=== PATIENT | male | born 1960 | race Caucasian/White ===

== ENCOUNTER 2021-11-23 12:34 | Outpatient (CLI) | payer BC, SELFPAY ==
[2021-11-23 13:39] VITALS: BP 184/100; PULSE 70; RESP 18
--- NOTE | 2021-11-23 14:59 | PM.ST ---
Stress Test Note Date Date Seen: 11/23/21 Date of test: 11/23/21 Providers Referring provider: Kai Medina Primary care provider: Kai Medina Stress test physician: Fili Gamboa Stress Test Note Stress test ordered: Stress Echo Indication for test: chest pain Results discussion: Pretest EKG shows normal sinus rhythm with a ventricular rate of 48 there is no acute ST wave changes. Blood pressure 170/92 is slightly elevated review of the cardiac stress test medical history is done after discussion the risks benefits side effects he would like to proceed Julian protocol is employed over a time course of 12 minutes 2nd, condition was felt to be excellent maximum blood pressure 216/102. He had no chest pain and no shortness of breath. Test is terminated because of fulfillment of protocol. There are no ST wave changes suggestive of ischemia he did have occasional PVCs at times. But recovered normally in the recovery. Impression: Negative electrographic portion of stress test, inducement of PVCs, condition felt to be excellent Follow up suggested: Follow-up with primary care suggested, echo portion will be reviewed by Cardiology clinical correlation with this will be needed. He left this testing facility in excellent condition.
== END 2021-11-23 13:46 | disposition home or self-care (01) ==
LOC: STRESS 12:35
PROVIDERS: PCP Family Medicine; Visit Provider Family Medicine
DX: R06.09 Other forms of dyspnea (principal)
CPT/HCPCS: 93016; 93325; 93351

== ENCOUNTER 2022-02-15 19:09 | Outpatient (CLI) | payer BC, SELFPAY ==
--- NOTE | 2022-02-23 13:15 | W.PM.SLEEP ---
Sleep Study Details Details Interpreting Provider: Jose Cross MD Date of Sleep Study: 02/15/22 Sleep Study Details: STUDY TYPE:? Home ? BMI:? 39 ORDERING PROVIDER:? Heike INDICATION:? Concerns about sleep apnea ? SLEEP SUMMARY:? 436 monitored minute RESPIRATORY SUMMARY:? AHI is 11.7 supine 13.9, right lateral 9.4 Low oxygen 80 0.8% of study oxygen less than 90%, and 0.1% of study oxygen less than 85% Snoring% 5.2 PERIODIC LIMB MOVEMENTS OF SLEEP:? Not recorded CARDIAC:? 43-88, mean 51.6 IMPRESSION:? Mild obstructive sleep apnea RECOMMENDATION: Treatment options would include AutoSet CPAP, dental appliance, weight loss and/or airway expansion surgery
== END 2022-02-15 19:10 | disposition home or self-care (01) ==
PROVIDERS: PCP Family Medicine; Visit Provider Otolaryngology
DX: G47.33 Obstructive sleep apnea (adult) (pediatric) (principal)
CPT/HCPCS: 95806

== ENCOUNTER 2022-04-12 14:37 | Outpatient (CLI) | payer BC, SELFPAY ==
--- OUTSIDE RECORDS SUMMARY | 2022-04-12 14:46 | XMS_ITS | Clinical Summary ---
:1960 Author Organization [facility] [place] [address] Care Team Providers Name Role Phone Kai Medina MD Primary Care Provider Allergies Active Allergy Reactions Severity Noted Date Comments Amoxicillin-Pot Clavulanate 10/12/2007 Severe vomiting Erythromycin 10/12/2007 Throat swelling and resp distress Azithromycin 10/12/2007 Throat swelling and respiratory dis tress Medications Medication Sig Dispensed Refills Start Date End Date Status MAXALT 10 MG TAB take 1 tablet (10 0 02/20/2008 Active mg) by oral route x 1 dose, may repeat at 2 hour intervals; do not exceed 30 mg in 24 hours sildenafil citrate As Needed 0 06/15/2018 Active (VIAGRA) 100 mg tablet famotidine (PEPCID) 10 Take 1 tablet by 0 01/22/2020 Active mg tablet mouth 2 times daily if needed. Active Problems Problem Noted Date Strain of gastroc with scar tissue 08/08/2014 Colon polyp 07/21/2010 Overview: Colonoscopy 06/2010 polyp repeat in 5 yea rs Colonoscopy 07/2017 polyp, repeat in 5 ye ars Immunizations Name Administration Dates Next Due Influenza, IIV3 (Age >=3 years) 03/14/2013 Social History Tobacco Use Types Packs/Day Years Used Date Smoking Tobacco: Never Smokeless Tobacco: Never Tobacco Cessation: Counseling Given: Yes Alcohol Use Standard Drinks/Week Comments Not Currently 0 (1 standard drink = 0.6 oz pure alcoho l) social Sex Assigned at Date Recorded Not on file Obstetrics History Last Filed Vital Signs Vital Sign Reading Time Taken Comments Blood Pressure 129/83 01/22/2020 2:59 PM CDT Pulse 56 01/22/2020 2:59 PM CDT Temperature 36.6 ??C (97.8 ??F) 10/16/2014 9:45 AM CDT Respiratory Rate 20 01/22/2020 2:59 PM CDT Oxygen Saturation 96% 01/22/2020 2:59 PM CDT Inhaled Oxygen - - Concentration Weight 99.2 kg (218 lb 11.2 01/22/2020 2:59 PM Pt weigh ed with shoes oz) CDT on. Height 179.1 cm (5' 10.51) 10/16/2014 9:45 AM CDT Body Mass Index 30.93 10/16/2014 9:45 AM CDT Plan of Treatment Upcoming Encounters Date Type Specialty Care Team Description 04/15/2022 Orders Only Health Maintenance Due Date Last Done Comments Tdap 02/03/1971 Depression screening for age 12+ 1972 HIV for age 15-65 02/03/1975 BMI (ht and wt on same day) for 02/03/1978 age 18+ Hepatitis C screening for age 1002/03/1978 18-79 Tetanus booster 1980 Lipids for age 45-75 02/03/2005 Zoster (shingles) series for age 1002/03/2010 50+ (1 of 2) COVID-19 vaccine series (4 - 05/19/2021 03/24/2021, 021, Booster for Pfizer series) 07/13/2020 Influenza for age 50-64 12/30/2021 03/14/2013 Colonoscopy through age 75 08/14/2022 08/14/2017, 8, 07/21/2010, Additional history exists Results Not on filefrom Last 3 Months Insurance Payer Benefit Plan / Subscriber ID Effective Dates Phone Addre ss Type Group [employer] [id number] 2017-Present [address] [place] [address] Care Teams 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
== END 2022-04-12 14:38 | disposition home or self-care (01) ==
LOC: LKVREF 14:39
PROVIDERS: PCP Family Medicine; Visit Provider Otolaryngology
DX: R06.00 Dyspnea, unspecified (principal)
CPT/HCPCS: 84443

== ENCOUNTER 2022-04-15 08:44 | Outpatient (CLI) | payer BC, SELFPAY ==
--- NOTE | 2022-04-15 09:15 | CRLHL7_ITS ---
For Patients: As a result of the Century Cures Act, medical imaging exams and procedure reports are released immediately into your electronic medical record. You may view this report before your referring provider. If you have questions, please contact your health care provider. Indication: Dyspnea Technique: Fluoroscopic sniff test. Fluoroscopic time 12 seconds. IMPRESSION: The hemidiaphragms are somewhat sluggish but not paralyzed. Mild normal motion is noted. Dictated by Shady Dorsey MD @ 04/15/2022 9:50:55 AM (Electronically Signed)
--- NOTE | 2022-04-15 10:15 | CRLHL7_ITS ---
For Patients: As a result of the Cures Act, medical imaging exams and procedure reports are released immediately into your electronic medical record. You may view this report before your referring provider. If you have questions, please contact your health care provider. INDICATION: Dyspnea TECHNIQUE: Chest 2 views COMPARISON: None FINDINGS: Cardiac silhouette is enlarged. There is tortuosity of the descending thoracic aorta. No pleural effusion. No pulmonary edema. No infiltrate or pneumothorax. No pulmonary fibrosis. Chronic changes to the right distal clavicle. IMPRESSION: Lungs are clear without evidence of airspace disease or fibrosis. Dictated by Shady Dorsey MD @ 04/15/2022 9:50:16 AM (Electronically Signed)
== END 2022-04-15 08:45 | disposition home or self-care (01) ==
LOC: RAD 08:44
PROVIDERS: PCP Family Medicine; Visit Provider Internal Medicine Pulmonary Disease
DX: I49.3 Ventricular premature depolarization (principal)
CPT/HCPCS: 71046; 76000; 93306

== ENCOUNTER 2022-10-14 07:41 | Outpatient (CLI) | payer BC, SELFPAY | END 2022-10-14 07:42 | disposition home or self-care (01) | LOC: NFLDREF 10-17 08:36 | PROVIDERS: PCP Family Medicine; Referring Provider Family Medicine; Visit Provider Family Medicine | DX: Z00.00 Encounter for general adult medical examination without abnormal findings (principal); E78.5 Hyperlipidemia, unspecified; Z12.5 Encounter for screening for malignant neoplasm of prostate | CPT/HCPCS: 80053; 80061; 84153 ==

== ENCOUNTER 2023-04-18 23:03 | Emergency (ER) | payer BC, SELFPAY ==
[2023-04-18 23:20] VITALS: BP 140/81; PULSE 61; RESP 20; TEMP 36.5; O2SAT 96; BMI 30.8
--- NOTE | 2023-04-18 23:57 | ED.GENADULT ---
HPI - General Adult General Time Seen by Provider: 23:57 Date Seen: 04/18/23 Chief complaint: Laceration/Wound Stated complaint: Cyst -wont stop bleeding Time Seen by Provider: 04/18/23 23:35 History of Present Illness HPI narrative: 63-year-old male who presents today with concern for a bleeding wound on his face. Patient has noted a small lump on the right side of his chin that has been growing for several months. It is not painful or itchy. It did bleed once before but soft on its own. Tonight thought there might be a little fluid collection it and so poked with a needle, is been bleeding since. Has applied pressure minimal improvement. Not on any blood thinners. Related Data Home Medications Medication Instructions Recorded Confirmed sildenafil 100 mg tablet mg PO .As Needed PRN 11/03/21 10/18/22 Previous Rx's Medication Instructions Recorded amlodipine 5 mg tablet 5 mg PO QDAY #90 tabs 10/18/22 atorvastatin 20 mg tablet 20 mg PO QHS #90 tabs 10/18/22 rizatriptan 10 mg tablet 10 mg PO .As Needed PRN migraine 10/18/22 headache #24 tabs tadalafil 10 mg tablet 10 - 20 mg (1 - 2 x 10 mg) PO QDAY 10/18/22 PRN sexual activity #10 tabs tamsulosin 0.4 mg capsule 0.4 mg PO QDAY #90 caps 10/18/22 Allergies Allergy/AdvReac Type Severity Reaction Status Date / Time clavulanic acid Allergy Mild Vomiting Verified 04/18/23 23:20 penicillin V Allergy Mild Vomiting Verified 04/18/23 23:20 tazobactam Allergy Mild Vomiting Verified 04/18/23 23:20 erythromycin Allergy Mild Hives Uncoded 10/18/22 07:09 [facility] Medical History (Updated 04/19/23 @ 00:36 by Stefano Hassan MD) History of giardiasis ?Z86.19 - Personal history of other infectious and parasitic diseases (ICD-10) Surgical History (Updated 11/02/21 @ 15:56 by Fran Lazaro) History of colonoscopy ?Z98.890 - Other specified postprocedural states (ICD-10) Family History (Updated 11/03/21 @ 15:13 by Kai Medina MD) Sister Melanoma Father Metastatic malignant neoplasm of unknown primary site Social History (Updated 10/18/22 @ 10:54 by Ny Hernandez ~ CTA) Narrative: , 2 children, 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 Exercises by walking and running on a treadmill 2 days per week. Habits: No tobacco or recreational drug use. Alcohol use is about 1 drink per week. What is your current living situation?: I presently have a place to live In the past 12 months, utilities in danger of being shut off: no In the past 12 mos, have been you worried that your food would run out before you had money to buy more?: never true In the past 12 mos, the food you bought just didn't last and you didn't have money to buy more?: never true Smoking Status: Never smoker Non-prescribed substance use: denies use How often does anyone, including family, friends and others, physically hurt you: How often does anyone, including family, friends and others, insult or talk down to you: How often does anyone, including family, friends and others, threaten you with harm: How often does anyone, including family, friends and others, scream or curse at you: Little interest or pleasure in doing things: not at all Feeling down, depressed, or hopeless: not at all Exam Narrative: Exam Narrative: General: well nourished , NAD Head: Atraumatic and normocephalic ENT: External ears and external nose are normal Eyes: Conjunctiva clear, pupils are equal reactive, external ocular motions are intact Neck: Full spontaneous range of motion of the neck Lungs: No respiratory distress Musculoskeletal: No tenderness or deformity Neurologic: No gross focal neurologic deficits Skin: 3 mm purplish flesh-colored papule on the right side of the chin with active bleeding from the medial edge Psych: Mood and affect are appropriate Const: Vital Signs, click to edit/add: Vital Signs - 24 hr 04/18/23 23:20 Temperature 97.7 F Pulse Rate [Left P ulse Oximeter] 61 Respiratory Rate 20 Blood Pressure [Ri ght Upper Arm] 140/81 H Pulse Oximetry 96 Oxygen Delivery Me thod Room Air Course Course ED Course: Patient presents with a bleeding papule on the chin after trauma. On exam, there is pinpoint bleeding on the medial edge of a flesh-colored purplish papule that likely represents hemangioma although cannot exclude basal cell carcinoma. Lidocaine 1% with epinephrine 2mL was infused around into the lesion. Reevaluation(s) Time of Reevaluation #1: 00:34 Reevaluation #1: Patient recheck, still with slow oozing from the lesion. Silver nitrate cautery applied with hemostasis. Stable for discharge, should follow-up with Dermatology for biopsy. Vital Signs Vital signs: Initial Vital Signs Temperature 97.7 F 04/18/23 23:20 Temperature Source Temporal Artery Scan 04/18/23 23:20 Pulse Rate 61 04/18/23 23:20 Respiratory Rate 20 04/18/23 23:20 Blood Pressure 140/81 H 04/18/23 23:20 Blood Pressure Mean 100 04/18/23 23:20 Pulse Oximetry 96 04/18/23 23:20 Oxygen Delivery Method Room Air 04/18/23 23:20 Vital Signs Temperature 97.7 F 04/18/23 23:20 Pulse Rate 61 04/18/23 23:20 Respiratory Rate 20 04/18/23 23:20 Blood Pressure 140/81 H 04/18/23 23:20 Pulse Oximetry 96 04/18/23 23:20 Oxygen Delivery Method Room Air 04/18/23 23:20 Temperature 97.7 F 04/18/23 23:20 Pulse Rate 61 04/18/23 23:20 Respiratory Rate 20 04/18/23 23:20 Blood Pressure 140/81 H 04/18/23 23:20 Pulse Oximetry 96 04/18/23 23:20 Oxygen Delivery Method Room Air 04/18/23 23:20 Medications Administered Medications: Generic Name Dose Route Start Last Admin Trade Name Sanyaq PRN Reason Stop Dose Admin Lidocaine/Epinephrine 20 ml 04/18/23 23:35 04/18/23 23:46 Lidocaine 1%-Epi 1:100,000 20 Ml INFILTRATI 04/18/23 23:36 20 ml ONCE ONE Administration Discharge Plan Discharge Clinical Impression: Hemorrhage of skin lesion, Papule of skin Patient Disposition: Home, Self-Care Condition: Improved Instructions: Potassium Nitrate/Silver Nitrate (On the skin) Additional Instructions: Keep dressing in place for 24 hours. Schedule follow-up with dermatology Activity Level: No Restrictions Discharge Diet: Regular Prescriptions: No Action sildenafil 100 mg tablet PO .As Needed PRN Rx Instructions: TAKE 1 TAB 1 HR PRIOR TO INTERCOURSE tadalafil 10 mg tablet 10 - 20 mg PO QDAY PRN (Reason: sexual activity) Qty: 10 11RF Rx Instructions: administer approximately 30min before sexual activity; do not use more than 1 dose per 24hrs rizatriptan 10 mg tablet 10 mg PO .As Needed PRN (Reason: migraine headache) Qty: 24 2RF atorvastatin 20 mg tablet 20 mg PO QHS Qty: 90 3RF amlodipine 5 mg tablet 5 mg PO QDAY Qty: 90 3RF tamsulosin 0.4 mg capsule 0.4 mg PO QDAY Qty: 90 3RF Follow Up/Referrals: Kai Medina MD [Primary Care Provider] - Stand Alone Forms: b3 bio Info Instructions
--- NOTE | 2023-04-19 00:49 | ED.NURSE ---
gel foam dressing placed prior to discharge.
== END 2023-04-19 00:50 | disposition home or self-care (01) ==
PROVIDERS: Emergency Provider Family Medicine; PCP Family Medicine
DX: L98.9 Disorder of the skin and subcutaneous tissue, unspecified (principal); R23.8 Other skin changes
CPT/HCPCS: 95992; 99282; 99283

== ENCOUNTER 2023-11-15 07:32 | Outpatient (CLI) | payer BC, SELFPAY ==
--- OUTSIDE RECORDS SUMMARY | 2023-11-17 03:51 | XMS_ITS | Clinical Summary ---
Author Organization [facility] Address [place], [place] [address] Care Team Providers Care Still Operator Batch Or Continuous Name Role Phone Kai Medina MD Primary Care Provider [phone] Allergies Active Allergy Reactions Criticality Noted Date Comments Amoxicillin-Pot Clavulanate 10/12/19 08 Severe vomiting Erythromycin 10/12/2007 Throat swelling and resp distress Azithromycin 10/12/2007 Throat swelling and respiratory distress Medications Medication Sig Dispensed Refills Start Date End Date Status MAXALT 10 MG TAB take 1 tablet (10 mg) by oral route x 1 dose, may repeat at 2 hour intervals; do not exceed 30 mg in 24 hours 0 02/20/2008 Active sildenafil citrate (VIAGRA) 100 mg tablet As Needed 06/15/2018 Ac tive famotidine (PEPCID) 10 mg tablet Take 1 tablet by mouth 2 times daily if needed. 0 01/22/2020 Active amLODIPine (NORVASC) 5 mg tablet Take 5 mg by mouth once daily. 06/10/2022 Active atorvastatin (LIPITOR) 20 mg tablet Take 20 mg by mouth at bedtime. 09/07/2022 Active Active Problems Problem Noted Date Diagnosed Date Strain of gastroc with scar tissue 08/08/2014 Colon polyp 07/21/2010 Overview: Colonoscopy 06/2010 polyp repeat in 5 years Colonoscopy 07/2017 polyp, repeat in 5 years Colonoscopy 08/2022 normal, repeat in 7 years Immunizations Name Administration Dates Next Due Influenza, IIV3 (Age >=3 years) 03/14/2013 Social History Tobacco Use Types Packs/Day Years Used Date Smoking Tobacco: Never Smokeless Tobacco: Never Tobacco Cessation:Counseling Given: Yes Alcohol Use Standard Drinks/Week Comments Not Currently 0 (1 standard drink = 0.6 oz pur e alcohol) social Social Connections Answer Date Recorded Frequency of Communication with Friends and Fami ly Not on file 05/20/2022 Financial Resource Strain Answer Date R ecorded Difficulty of Paying Living Expenses Not on file 05/01/2021 Difficulty of Paying Living Expenses Not on file 05/01/2021 Sex and Gender Information Value Date Recorded Sex Assigned at Not on file Gender Identity Not on file Sexual Orientation Not on file Obstetrics History Last Filed Vital Signs Vital Sign Reading Time Taken Comments Blood Pressure 134/87 09/22/2022 11:05 AM CDT Pulse 51 09/22/2022 11:05 AM CDT Temperature 36.6 ??C (97.8 ??F) 10/16/2014 9 :45 AM CDT Respiratory Rate 20 09/22/2022 11:0 5 AM CDT Oxygen Saturation 100% 09/22/2022 11: 05 AM CDT Inhaled Oxygen Concentration - - Weight 99.2 kg (218 lb 11.2 oz) 01/22/2020 2:59 PM CDT Pt weighed with shoes on. Height 179.1 cm (5' 10.51) 10/16/2014 9:45 AM CDT Body Mass Index 30.93 10/16/2014 9:45 AM CDT Plan of Treatment Health Maintenance Due Date Last Done Comments Tdap 02/03/1971 Depression screening for age 12+ 1972 HIV for age 15-65 02/03/1975 BMI (ht and wt on same day) for age 18+ 02/03/1978 Hepatitis C screening for age 18-79 02/03/1978 Tetanus booster 1980 Lipids for age 45-75 02/03/2005 Zoster (shingles) series for age 50+ (1 of 2) 02/03/2010 COVID-19 vaccine series ( - 2022- season) 2022 Influenza for age 50-64 12/31/2023 03/14/2013 Colonoscopy through age 75 09/22/202909/22, 09/22/2022, 08/14/2017, Additional history exists Pneumococcal series for age 6-64 Aged Out No longer eligible based on patient's age to complete this topic Procedures Procedure Name Priority Date/Time Associated Diagnosis Comments COLONOSCOPY 09/22/2022 9:56 AM CDT from Last 3 Months or Most Recently Relevant to Health Maintenance Results * COLONOSCOPY (09/22/2022 9:56 AM CDT) 09/22/2022 9:56 AM CDT Narrative Transcriptions Carlos Ariza MD - 09/22/2022 10:46 AM CDT Patient Name: Deon Lira Procedure Date: 09/22/2022 Gender: Male Date of : 1960 Admit Type: Outpatient Procedure: Colonoscopy Proceduralist: Carlos Ariza MD , Starr Villafuerte, WAQAS(Nurse), Ava Matthews (Nurse) Indications/Pre-Op Diagnosis: High risk colon cancer surveillance:Personal history of adenoma less than 10 mm in size, Last colonoscopy: July 2017 Medications: Fentanyl 100 micrograms IV, Midazolam 4 mgIV, The level of sedation administered wasmoderate Procedure Description: The patient had risks, benefits and alternatives explained to andgave informed consent. The patient had a stable cardiopulmonary status and judged an adequate candidate for conscious sedation. The [id number] was passed through the anus and advanced to the cecum, identified by appendiceal orifice and ileocecal valve. Thecolonoscopy was performed without difficulty. The patient tolerated the procedure well. The quality of the bowel preparation was good. The ileocecal valve, appendiceal orifice, and rectum were photographed. Complications: No immediate complications. Estimated Blood Loss & Specimen: Estimated blood loss: none. Specimen collected - None Findings: The perianal and digital rectal examinations were normal. The entire examined colon appeared normal on direct and retroflexion views. Impressions/Post-Op Diagnosis: - The entire examined colon is normal on direct and retroflexionviews. - No specimens collected. Recommendation: - Patient has a contact number available for emergencies. The signsand symptoms of potential delayed complications were discussed with the patient. Return to normal activities tomorrow. Written discharge instructions were provided to the patient. - Resume previous diet. - Continue present medications. - Repeat colonoscopy in 7 years for surveillance. Moderate Sedation: A time out was performed before the procedure. Moderate (conscious) sedation was administered by the endoscopy nurse and supervised bythe endoscopist. The following parameters were monitored: oxygensaturation, heart rate, blood pressure, EKG, CO2, respiratory rate, adequacy of pulmonary ventilation and reponse to care. Please refer to the patient's medical record flowsheets and nursing notes for moderate sedation details. Total physician intraservice time was 15 minutes. Carlos Ariza MD 09/22/2022 10:45:59 AM This report has been signed electronically. Note Initiated On: 09/22/2022 9:56 AM Procedure Code(s): --- Professional --- 85974, Colonoscopy, flexible; diagnostic, including collection of specimen(s) bybrushing or washing, when performed (separateprocedure) Diagnosis Code(s): --- Professional --- Z86.010, Personal history of colonicpolyps CPT copyright 2021 [employer]. All rights reserved. The codes documented in this report are preliminary and upon agronomy research manager reviewmay be revised to meet current compliance requirements. Scope In: 10:25:08 AM Scope Withdrawal Time 0 hours 8 minutes 39 seconds Scope Out: 10:37:55 AM Carlos Ariza MD PROCEDURE ORD from Last 3 Months or Most Recently Relevant to Health Maintenance Care Teams Still Operator Batch Or Continuous Relationship Specialty Start Date End Date Kai Medina MD [address] [place] [address] PCP - General Family Practice 07/10/19
== END 2023-11-15 07:33 | disposition home or self-care (01) ==
LOC: NFLDREF 11-17 03:50
PROVIDERS: PCP Family Medicine; Referring Provider Family Medicine; Visit Provider Family Medicine
DX: Z00.00 Encounter for general adult medical examination without abnormal findings (principal); E78.5 Hyperlipidemia, unspecified; Z12.5 Encounter for screening for malignant neoplasm of prostate
CPT/HCPCS: 80053; 80061; G0103

== ENCOUNTER 2024-07-11 15:15 | Outpatient (RCR) | payer BC, SELFPAY | END 2024-07-29 15:59 | disposition home or self-care (01) | PROVIDERS: PCP Family Medicine; Visit Provider Family Medicine | DX: M25.561 Pain in right knee (principal); M25.562 Pain in left knee; Z51.89 Encounter for other specified aftercare | CPT/HCPCS: 97110; 97112; 97161 ==

== ENCOUNTER 2024-09-24 14:47 | Outpatient (CLI) | payer BC, SELFPAY ==
--- NOTE | 2024-09-24 15:00 | CRLHL7_ITS ---
For Patients: As a result of the Cures Act, medical imaging exams and procedure reports are released immediately into your electronic medical record. You may view this report before your referring provider. If you have questions, please contact your health care provider. Indication: Chronic sinusitis. Technique: CT of the sinuses performed without IV contrast Comparison: None relevant available Findings: Frontal sinuses: Severe right-sided mucosal disease, left side is clear. Ethmoid sinuses: Severe right-sided mucosal disease, mild mucosal disease on the left. Maxillary sinuses: Severe right-sided opacification with air-fluid level. Minimal mucosal disease on the left. Sphenoid sinuses: Clear. The right ostiomeatal unit is occluded. Mild mucosal thickening along the left ostiomeatal unit, and bilateral sphenoethmoidal recesses. Right frontoethmoidal recess is occluded. Nasal Cavity: Slight rightward nasal septal deviation. No aggressive osseous erosion or periosteal reaction identified. Impression: 1. Severe right maxillary, ethmoid and frontal sinusitis related to ostiomeatal unit occlusion/dysfunction 2. Right maxillary air-fluid level suggesting possible acute sinusitis component. Please note that all CT scans at this facility use dose modulation, iterative reconstruction, and/or weight-based dosing when appropriate to reduce radiation dose to as low as reasonably achievable. Dictated by Braulio Fajardo MD @ 09/24/2024 4:41:06 PM (Electronically Signed)
--- NOTE | 2024-09-24 15:30 | CRLHL7_ITS ---
For Patients: As a result of the Century Cures Act, medical imaging exams and procedure reports are released immediately into your electronic medical record. You may view this report before your referring provider. If you have questions, please contact your health care provider. INDICATION: Dizziness. TECHNIQUE: Multisequence multiplanar MRI of the brain and internal auditory canals prior to and following administration of 20 cc Dotarem gadolinium-based intravenous contrast. COMPARISON: None available. FINDINGS: No evidence of acute ischemia. Scattered foci of T2 prolongation within the white matter of both cerebral hemispheres, nonspecific, but typical of mild chronic small vessel ischemic changes. No focus of abnormal enhancement. The ventricles are normal in size. Flow voids of the larger intracranial arteries are preserved. Dedicated imaging of the internal auditory canals demonstrates normal course of the cranial nerve 7/8 complexes. No cerebellopontine angle mass or abnormal enhancement is identified. The membranous labyrinth are unremarkable in appearance. Normal calvarial bone marrow signal intensity. Bilateral pseudophakia. Partial opacification of the right frontal, anterior ethmoid, and maxillary sinuses with fluid level indicating acute sinusitis. IMPRESSION: 1. No acute intracranial abnormality. Specifically, no evidence of acute ischemia. 2. Scattered foci of T2 prolongation within the supratentorial white matter, nonspecific, but commonly reflecting mild chronic small vessel ischemic changes. 3. No intracranial mass effect or focus of abnormal enhancement. 4. Unremarkable MRI of the internal auditory canals. 5. Opacified right frontal, anterior ethmoid, and maxillary sinuses with fluid levels indicating acute sinusitis. Dictated by Ramesh Camarillo MD @ 09/24/2024 4:49:10 PM (Electronically Signed)
== END 2024-09-24 14:48 | disposition home or self-care (01) ==
LOC: CT 14:47
PROVIDERS: PCP Family Medicine; Visit Provider Otolaryngology
DX: J32.9 Chronic sinusitis, unspecified (principal); J32.0 Chronic maxillary sinusitis; J32.2 Chronic ethmoidal sinusitis; J32.1 Chronic frontal sinusitis; R42 Dizziness and giddiness; I67.82 Cerebral ischemia
CPT/HCPCS: 70486; 70553; A9575

== ENCOUNTER 2024-11-11 07:30 | Outpatient (RCR) | payer BC, SELFPAY | END 2025-02-20 16:19 | disposition home or self-care (01) | PROVIDERS: PCP Family Medicine; Visit Provider Otolaryngology | DX: H81.11 Benign paroxysmal vertigo, right ear (principal); Z51.89 Encounter for other specified aftercare | CPT/HCPCS: 95992; 97112; 97161 ==

== ENCOUNTER 2025-01-02 07:42 | Outpatient (CLI) | payer BC, SELFPAY | END 2025-01-02 07:43 | disposition home or self-care (01) | LOC: NFLDREF 01-08 07:30 | PROVIDERS: PCP Family Medicine; Referring Provider Family Medicine; Visit Provider Family Medicine | DX: I10 Essential (primary) hypertension (principal); E78.5 Hyperlipidemia, unspecified; Z12.5 Encounter for screening for malignant neoplasm of prostate | CPT/HCPCS: 80053; 80061; G0103 ==